=== PATIENT | male | born 1970 | race Hispanic/Latino ===

== ENCOUNTER 2018-06-30 18:16 | Inpatient (IN) | payer SELFPAY ==
[~2018-06-30] VITALS: Ht 170.2 cm; Wt 108.9 kg
[2018-06-30] MEDS ORDERED: SODIUM CHLORIDE 0.9% 1000ML 1,000 ML IV STA (18:28)
[2018-06-30 18:48] LABS: BASOPHILS # (AUTO) 0.1 (0.0-0.1); BASOPHILS % 0.5 % (0.0-1.0); EOSINOPHILS # (AUTO) 0.1 (0.0-0.4); EOSINOPHILS % 0.6 % (0.0-6.0); LYMPHOCYTES # (AUTO) 3.3 (1.0-3.2); LYMPHOCYTES % 19.6 % (18.0-39.1); MEAN CORPUSCULAR HEMOGLOBIN 32.8 pg (28-32); MEAN CORPUSCULAR HGB CONC 34.8 g/dL (31-35); MEAN CORPUSCULAR VOLUME 94.2 fL (81-99); MONOCYTES # (AUTO) 1.3 (0.2-0.8); MONOCYTES % 7.7 % (4.4-11.3); NEUTROPHILS # (AUTO) 11.1 (2.1-6.9); NEUTROPHILS % 66.8 % (38.7-80.0); PLATELET COUNT 208 x10e3/uL (140-360); RED BLOOD COUNT 1.89 x10e6/uL (4.3-5.7); RED CELL DISTRIBUTION WIDTH 12.7 % (11.7-14.4)
[2018-06-30 18:51] LABS: HEMATOCRIT 17.8 % (38.2-49.6); HEMOGLOBIN 6.2 g/dL (14.0-18.0)
[2018-06-30] MEDS ORDERED: MORPHINE SULFATE INJ 4 MG/ML INJ IV ONE (19:00)
[2018-06-30] MEDS ORDERED: ONDANSETRON HCL INJ 2 MG/ML VIAL IV ONE (19:00)
[2018-06-30] MEDS ORDERED: SODIUM CHLORIDE 0.9% 250ML 250 ML IV ONE (19:00)
[2018-06-30 19:01] LABS: BILIRUBIN,URINE NEGATIVE (NEGATIVE); CLARITY,URINE CLEAR (CLEAR); COLOR,URINE YELLOW (YELLOW); INR 1.03; KETONES,URINE NEGATIVE (NEGATIVE); LEUKOCYTE ESTERASE ,URINE NEGATIVE (NEGATIVE); NITRITE,URINE NEGATIVE (NEGATIVE); PARTIAL THROMBOPLASTIN TIME 26.9 seconds (23.8-35.5); PROTEIN,URINE DIPSTICK NEGATIVE (NEGATIVE); PROTHROMBIN TIME 14.4 seconds (11.9-14.5); URINE UROBILINOGEN 0.2 mg/dL (0.2 - 1)
[2018-06-30 19:09] LABS: ALANINE AMINOTRANSFERASE 59 IU/L (0-55); ALBUMIN 3.4 g/dL (3.5-5.0); ALBUMIN/GLOBULIN RATIO 1.4 (0.8-2.0); ALKALINE PHOSPHATASE 41 IU/L (40-150); AMYLASE 61 U/L (25-125); ANION GAP 11.3 mmol/L (8-16); BLOOD UREA NITROGEN 24 mg/dL (7-26); BUN/CREATININE RATIO 28 (6-25); CALCIUM 8.2 mg/dL (8.4-10.2); CARBON DIOXIDE 24 mmol/L (22-29); CHLORIDE 103 mmol/L (98-107); CREATINE KINASE 48 IU/L (30-200); CREATININE, SERUM 0.87 mg/dL (0.72-1.25); EST GLOMERULAR FILTRATION RATE > 60 ML/MIN (60-); GLUCOSE 148 mg/dL (74-118); LIPASE 45 U/L (8-78); POTASSIUM 3.3 mmol/L (3.5-5.1); SODIUM 135 mmol/L (136-145)
[2018-06-30 19:13] LABS: BACTERIA,URINE FEW /HPF; EPITHELIAL CELLS,URINE FEW /LPF; TRANSITIONAL EPI CELLS,URINE FEW
[2018-06-30] MEDS ORDERED: IOPAMIDOL 370 MG/ML 200 ML INFUS..BTL INJ ONE (20:14)
[2018-06-30] MEDS ORDERED: SODIUM CHLORIDE 0.9% 50ML 50 ML ONE ×2 (20:14)
--- NOTE | 2018-06-30 20:24 | Diagnostic Imaging Report ---
ADDENDUM #1 The following addendum is being made to comply with coding criteria, and does not substantially change the findings or recommendations of the original report All CT scans are performed using radiation dose reduction techniques. Technical factors are evaluated and adjusted to ensure appropriate moderation of exposure. Automated dose management technology is applied to adjust the radiation dose to minimize exposure while achieving a diagnostic-quality image. Signed by: Dr. Wilner Gaines M.D. on 07/07/2018 1:29 PM ORIGINAL REPORT EXAM: CT Abdomen and Pelvis WITH contrast INDICATION: Abdominal pain. Vomiting and diarrhea COMPARISON: None. TECHNIQUE: Abdomen and pelvis were scanned utilizing a multidetector helical scanner from the lung base to the pubic symphysis after administration of IV contrast. Coronal and sagittal reformations were obtained. Routine protocol was performed. Scan was performed when during portal venous phase. IV CONTRAST: 100 mL of Isovue-370 ORAL CONTRAST: Water RADIATION DOSE: Total DLP: 773.44 mGy*cm Estimated effective dose: (DLP x 0.015 x size factor) mSv COMPLICATIONS: None FINDINGS: LINES and TUBES: None. LOWER THORAX: Unremarkable HEPATOBILIARY: No focal hepatic lesions. No biliary ductal dilation. GALLBLADDER: No radio-opaque stones or sludge. No wall thickening. SPLEEN: No splenomegaly. PANCREAS: No focal masses or ductal dilatation. ADRENALS: No adrenal nodules KIDNEYS/URETERS: Kidneys enhance symmetrically. No hydronephrosis. No cystic or solid mass lesions. No stones. GI TRACT: No abnormal distention, wall thickening, or evidence of bowel obstruction. Appendix is normal. PELVIC ORGANS/BLADDER: Unremarkable. LYMPH NODES: No lymphadenopathy. VESSELS: Unremarkable. PERITONEUM / RETROPERITONEUM: No free air or fluid. BONES: Unremarkable. SOFT TISSUES: Unremarkable. IMPRESSION: 1. No acute CT abnormality in the abdomen or pelvis. Signed by: Dr. Wilner Gaines M.D. on 06/30/2018 8:20 PM
[2018-06-30] MEDS ORDERED: PROTONIX 200MG/SODIUM CHLORIDE 0.9% 250 ML BAG IV SCH (20:30)
[2018-06-30] MEDS ORDERED: PANTOPRAZOLE 40 MG 10ML VIAL IV ONE (20:35)
--- NOTE | 2018-06-30 20:45 | Diagnostic Imaging Report ---
EXAMINATION: CHEST SINGLE (PORTABLE) INDICATION: Chest pain. Weakness. COMPARISON: None FINDINGS: TUBES and LINES: None. LUNGS: Lungs are well inflated. Lungs are clear. There is no evidence of pneumonia or pulmonary edema. PLEURA: No pleural effusion or pneumothorax. HEART AND MEDIASTINUM: The cardiomediastinal silhouette is unremarkable. BONES AND SOFT TISSUES: No acute osseous lesion. Soft tissues are unremarkable. UPPER ABDOMEN: No free air under the diaphragm. IMPRESSION: No acute thoracic abnormality. Signed by: Dr. Wilner Gaines M.D. on 06/30/2018 8:42 PM
[2018-06-30 20:53] LABS: LYMPHOCYTES % (MANUAL) 20 % (19-48); MICROCYTOSIS MODERATE; MONOCYTES % (MANUAL) 1 % (3.4-9.0); NEUTROPHILS % (MANUAL) 73 % (40-74); NUCLEATED RED BLOOD CELLS 1; RBC MORPHOLOGY COMMENT NORMAL
[2018-06-30 20:54] LABS: PLATELET ESTIMATE ADEQUATE; PLATELET MORPHOLOGY COMMENT NORMAL
--- OUTSIDE RECORDS SUMMARY | 2018-06-30 21:16 | XMS REPORT ---
Author Author [facility] Address Unknown Phone Unavailable Care Team Providers Care Tax Accounting Manager Name Role Phone Haydee MALAVE Unavailable Unavailable Problems This patient has no known problems. Allergies, Adverse Reactions, Alerts This patient has no known allergies or adverse reactions. Medications This patient has no known medications. Results Test Description Test Time Test Comments Text Results Atomic Results Result Comments CHEST SINGLE (PORTABLE) 2018-06-30 20:41:00 [facility] [address] [place] [address] Patient Name: Paul THORNE MR #: [id number] : 1970 Age/Sex: 47/M Req #: [id number] Adm Physician: Ordered by: REBECCA MCKENZIE RESIDENTIAL REAL ESTATE AGENT Report #: [id number] Location: ER Room/Bed: Procedure: [id number] DX/CHEST SINGLE (PORTABLE) Exam Date: 06/30/18 Exam Time: 2017 REPORT STATUS: Signed EXAMINATION: CHEST SINGLE (PORTABLE) INDICATION: Chest pain. Weakness. COMPARISON: None FINDINGS: TUBES and LINES: None. LUNGS: Lungs are well inflated. Lungs are clear. There is no evidence of pneumonia or pulmonary edema. PLEURA: No pleural effusion or pneumothorax. HEART AND MEDIASTINUM: The cardiomediastinal silhouette is unremarkable. BONES AND SOFT TISSUES: No acute osseous lesion. Soft tissues are unremarkable. UPPER ABDOMEN: No free air under the diaphragm. IMPRESSION: No acute thoracic abnormality. Signed by: Dr. Wilner Gaines M.D. on 06/30/2018 8:42 PM Dictated By: WILNER GAINES MD, MD 41 Transcribed By: KEENAN on 06/30/182041 COPY TO: REBECCA MCKENZIE NP CT ABDOMEN/PELVIS W 2018-06-30 20:18:00 [place] [address] Patient Name: Paul THORNE MR #: [id number] : 1970 Age/Sex: 47/M Req #: [id number] Adm Physician: Ordered by: REBECCA MCKENZIE NP Report #: [id number] Location: ER Room/Bed: Procedure: [id number] CT/CT ABDOMEN/PELVIS W Exam Date: 06/30/18 Exam Time: 1999 REPORT STATUS: Signed EXAM: CT Abdomen and Pelvis WITH contrast IN DICATION: Abdominal pain. Vomiting and diarrhea COMPARISON: None. TECHNIQUE: Abdomen and pelvis were scanned utilizing a multidetector helical scanner from the lung base to the pubic symphysis after administration of IV contrast. Coronal and sagittal reformations were obtained. Routine protocol was performed. Scan was performed when during portal venous phase. IV CONTRAST: 100 mL of Isovue-370 ORAL CONTRAST: Water RADIATION DOSE: Total DLP: 773.44 mGy*cm Estimated effective dose: (DLP x 0.015 x size factor) mSv COMPLICATIONS: None FINDINGS: LINES and TUBES: None. LOWER THORAX: Unremarkable HEPATOBILIARY: No focal hepatic lesions. No biliary ductal dilation. GALLBLADDER: No radio-opaque stones or sludge. No wall thickening. SPLEEN: No splenomegaly. PANCREAS: No focal masses or ductal dilatation. ADRENALS: No adrenal nodules KIDNEYS/URETERS: Kidneys enhance s ymmetrically. No hydronephrosis. No cystic or solid mass lesions. No stones. GI TRACT: No abnormal distention, wall thickening, or evidence of bowel obstruction. Appendix is normal. PELVIC ORGANS/BLADDER: Unremarkable. LYMPH NODES: No lymphadenopathy. VESSELS: Unremarkable. PERITONEUM / RETROPERITONEUM: No free air or fluid. BONES: Unremarkable. SOFT TISSUES: Unremarkable. IMPRESSION: 1. No acute CT abnormality in the abdomen or pelvis. Signed by: Dr. Wilner Gaines M.D. on 06/30/2018 8:20 PM Dictated By: WILNER GAINES MD, MD 19 Transcribed By: KEENAN on 06/30/182019 COPY TO: REBECCA MCKENZIE NP
[2018-06-30] MEDS: PANTOPRAZOL 40MG/SOD CHL 0.9% 50 ML IV SCH (21:45)
[2018-06-30] MEDS: SODIUM CHLORIDE 0.9% 1000ML 1,000 ML IV SCH (22:15)
[2018-06-30 23:00] VITALS: BP 114/64
[2018-06-30] MEDS ORDERED: NEXIUM20 MG PO (23:17)
[2018-06-30 23:21] VITALS: BP 114/64
[2018-06-30 23:30] VITALS: BP 111/59
[2018-06-30 23:45] VITALS: BP 105/67
[2018-07-01] VITALS (44 sets, daily range): BP systolic 91–117; BP diastolic 49–80
[2018-07-01] MEDS: PANTOPRAZOL 40MG/SOD CHL 0.9% 50 ML IV SCH ×5 (02:44→21:54)
[2018-07-01] MEDS: SODIUM CHLORIDE 0.9% 1000ML 1,000 ML IV SCH ×3 (04:45→18:05)
[2018-07-01 07:25] LABS: BASOPHILS # (AUTO) 0.1 (0.0-0.1); BASOPHILS % 0.6 % (0.0-1.0); EOSINOPHILS # (AUTO) 0.2 (0.0-0.4)
[2018-07-01 07:33] LABS: ANION GAP 9.6 mmol/L (8-16); BLOOD UREA NITROGEN 15 mg/dL (7-26); BUN/CREATININE RATIO 21 (6-25); CALCIUM 7.7 mg/dL (8.4-10.2); CARBON DIOXIDE 22 mmol/L (22-29); CHLORIDE 105 mmol/L (98-107); CREATININE, SERUM 0.73 mg/dL (0.72-1.25); EST GLOMERULAR FILTRATION RATE > 60 ML/MIN (60-); GLUCOSE 126 mg/dL (74-118); POTASSIUM 3.6 mmol/L (3.5-5.1); SODIUM 133 mmol/L (136-145)
[2018-07-01 07:50] LABS: ANISOCYTOSIS SLIGHT; EOSINOPHILS % (MANUAL) 1 % (0-7); HYPOCHROMASIA MODERATE; LYMPHOCYTES % (MANUAL) 20 % (19-48); METAMYELOCYTES % (MANUAL) 4 % (0-0); MONOCYTES % (MANUAL) 9 % (3.4-9.0); MYELOCYTES % (MANUAL) 2 % (0-0); NEUTROPHILS % (MANUAL) 64 % (40-74); NUCLEATED RED BLOOD CELLS 3; PLATELET ESTIMATE ADEQUATE; PLATELET MORPHOLOGY COMMENT NORMAL; RBC MORPHOLOGY COMMENT NORMAL
[2018-07-01 07:53] LABS: EOSINOPHILS % 1.5 % (0.0-6.0); HEMATOCRIT 22.4 % (38.2-49.6); LYMPHOCYTES # (AUTO) 2.3 (1.0-3.2); LYMPHOCYTES % 16.3 % (18.0-39.1); MEAN CORPUSCULAR HEMOGLOBIN 31.3 pg (28-32); MEAN CORPUSCULAR HGB CONC 34.8 g/dL (31-35); MONOCYTES # (AUTO) 1.3 (0.2-0.8); MONOCYTES % 9.5 % (4.4-11.3); NEUTROPHILS # (AUTO) 9.2 (2.1-6.9); NEUTROPHILS % 66.2 % (38.7-80.0); PLATELET COUNT 174 x10e3/uL (140-360); RED BLOOD COUNT 2.49 x10e6/uL (4.3-5.7); RED CELL DISTRIBUTION WIDTH 14.5 % (11.7-14.4)
[2018-07-01 07:54] LABS: HEMOGLOBIN 7.8 g/dL (14.0-18.0)
--- NOTE | 2018-07-01 10:05 | History and Physical ---
CHIEF COMPLAINT: Diarrhea, watery stools and black stools. HISTORY OF PRESENT ILLNESS: Mr. Robles is a 47-year-old male who presented to the emergency room with black stool and diarrhea going on for 3 days, progressively getting worse. Then he was feeling weak. When he came in, his hemoglobin was 6.2. He received 3 units of blood. He denies any vomiting of blood. He also denies any use of NSAID. He is an every day drinker of 6-pack of 18-ounce beer. He denies any history of peptic ulcer disease. REVIEW OF SYSTEMS GENERAL: Denies any fever or chills. HEAD: Denies any head trauma. EARS: Denies any earache. CVS: Denies any chest pain. RESPIRATORY: Denies any shortness of breath. GI: As above. OTHER: The rest of the review systems are negative except as in HPI. PAST MEDICAL HISTORY: None. PAST SURGICAL HISTORY: None. FAMILY AND SOCIAL HISTORY: Every day smoker for 5 years and drinker every day. PHYSICAL EXAMINATION VITAL SIGNS: Temperature 98, pulse of 90, blood pressure 109/60, respiratory rate 18, O2 sat 99%. HEENT: Head is atraumatic and normocephalic. NECK: Supple. CHEST: Clear to auscultation bilaterally. No wheezing. HEART: S1, S2 audible. ABDOMEN: Soft, nontender nondistended. EXTREMITIES: No clubbing, cyanosis or edema. NEUROLOGIC: Awake and alert. LABS: Hemoglobin was 6.2 and 7.8 now. Chemistries within normal limits. CT abdomen and pelvis was done in the emergency room which showed no acute abnormality in the abdomen or pelvis. ASSESSMENT/PLAN 1. Mr. Robles is a 47-year-old male who presented with gastrointestinal bleed. He will receive 3 packs of RBCs, which have been ordered. GI consult has been called. Patient will have EGD endoscopy today. Will follow GI recommendations. 2. History of alcohol abuse. Will closely follow. May need withdrawal precautions. Job#: [id number]
[2018-07-01 12:24] LABS: HEMATOCRIT 23.4 % (38.2-49.6); HEMOGLOBIN 8.1 g/dL (14.0-18.0)
--- NOTE | 2018-07-01 12:48 | Consultation ---
DATE OF CONSULTATION: July 01, 2018 GASTROENTEROLOGY CONSULTATION REASON FOR CONSULTATION: GI bleed. CHIEF COMPLAINT: Abdominal pain. HPI: The patient is a 47-year-old male with no significant past medical history who presented with epigastric abdominal pain, dizziness and diarrhea that started about 3 days ago. He states that he was feeling really weak and dizzy and also started throwing up. He also noticed having some melena since Saturday. He denies any history of ulcers in the past or chronic NSAID use. However, he does mention drinking a 6-pack of beer a day. He was found to have severe anemia and was found to have a hemoglobin of 6.2, and he was given blood. Hemoglobin is currently stable. He denies any fevers, chills, hematemesis or hematochezia. He denies any shortness of breath. However, he does complain of mild chest discomfort. REVIEW OF SYSTEMS: Denies constipation. Denies hematemesis. Denies dysuria, fevers, chills. PAST MEDICAL HISTORY: Not mentioned. SURGERIES: No history of any previous surgeries. MEDICATIONS: Patient reports taking Nexium on a daily basis for reflux. ALLERGIES: NO KNOWN DRUG ALLERGIES. SOCIAL HISTORY: Occasional smoker. Alcohol use: About a 6-pack per day. FAMILY HISTORY: Reports diabetes, hypertension, heart disease, cancer and cirrhosis. PHYSICAL EXAMINATION VITAL SIGNS: Temperature 98, pulse 90, respiratory rate 18, blood pressure 109/61, pulse ox 99. GENERAL APPEARANCE: Alert and oriented times 3. EYES: Pupils are equal, round and reactive to light. NECK: Nontender. Supple. CARDIO: No murmurs. Regular rate and rhythm. LUNGS: No respiratory distress. Breath sounds normal. Chest is nontender. ABDOMEN: Slightly distended. Nontender. Bowel sounds normal. BACK: No CVA tenderness. SKIN: Warm and dry. No rash. No pallor. EXTREMITIES: Normal range of motion. No calf tenderness. No edema. NEURO: Alert and oriented x3. No motor or sensory deficit. PSYCH: Normal affect. LABS AND IMAGING: Abdominal CT shows no acute CT abnormality in the abdomen or pelvis. White count is 16.61, hemoglobin 6.2, hematocrit 17.8, MCV 94.2, platelet count 208. Coags: INR 1.03, PT 14.4. Sodium 135, potassium 3.3, BUN 15, creatinine 0.73, glucose 126, magnesium 2.0. ALT 59, AST 26. Troponin normal. Albumin 3.4. Lipase 45. ASSESSMENT 1. Melena, rule out gastrointestinal bleed. 2. Severe anemia. 3. Epigastric abdominal pain. 4. Diarrhea. 5. History of alcohol abuse. PLAN: We will go ahead and proceed with EGD today with Dr. Hinojosa. The patient is already currently on pantoprazole drip along with antiemetic. Discussed the procedure with the patient and the family at bedside, and they are aware. The patient is also currently n.p.o. We have also continued to monitor H and H and for any other signs of bleed. Alcohol cessation strongly recommended. Thank you for consulting. We will follow. DICTATED BY: Lisa Daily PA-C Job#: [id number]
[2018-07-01] MEDS ORDERED: MIDAZOLAM HCL 5 MG/ML VIAL ONE (18:55)
[2018-07-01] MEDS ORDERED: FENTANYL CITRATE/PF 100MCG/2 ML INJ ONE (18:55)
[2018-07-01 19:17] LABS: HEMATOCRIT 23.3 % (38.2-49.6); HEMOGLOBIN 8.2 g/dL (14.0-18.0)
[2018-07-01] MEDS ORDERED: PROPOFOL IV EMULSION 10 MG/ML 20 ML VIAL ONE (19:27)
[2018-07-02] VITALS (18 sets, daily range): BP systolic 94–120; BP diastolic 57–77
[2018-07-02 00:03] LABS: HEMATOCRIT 22.6 % (38.2-49.6); HEMOGLOBIN 7.8 g/dL (14.0-18.0)
[2018-07-02] MEDS: PANTOPRAZOL 40MG/SOD CHL 0.9% 50 ML IV SCH ×4 (03:19→17:59)
[2018-07-02] MEDS: SODIUM CHLORIDE 0.9% 1000ML 1,000 ML IV SCH ×3 (03:19→16:32)
[2018-07-02 04:25] LABS: HEMATOCRIT 21.9 % (38.2-49.6); HEMOGLOBIN 7.5 g/dL (14.0-18.0)
[2018-07-02 11:46] LABS: HEMATOCRIT 24.7 % (38.2-49.6); HEMOGLOBIN 8.4 g/dL (14.0-18.0)
[2018-07-02 18:46] LABS: HEMATOCRIT 25.2 % (38.2-49.6); HEMOGLOBIN 8.5 g/dL (14.0-18.0)
[2018-07-03] VITALS (9 sets, daily range): BP systolic 106–139; BP diastolic 59–79
[2018-07-03] MEDS: PANTOPRAZOL 40MG/SOD CHL 0.9% 50 ML IV SCH ×2 (00:07→04:31)
[2018-07-03] MEDS: SODIUM CHLORIDE 0.9% 1000ML 1,000 ML IV SCH (02:00)
[2018-07-03 04:27] LABS: HEMATOCRIT 23.3 % (38.2-49.6); HEMOGLOBIN 7.9 g/dL (14.0-18.0)
--- NOTE | 2018-07-03 10:48 | Discharge Summary ---
FINAL DIAGNOSES 1. Gastrointestinal bleed. 2. Smoker. ADMISSION HISTORY AND HOSPITAL COURSE: Mr. Robles is a 47-year-old male who presented with dark, tarry stool. The patient received 3 units of blood transfusion and underwent EGD by Dr. Hinojosa, who found normal esophagus and duodenal ulcer. He recommended to start the patient on Protonix, which was continued. The patient is doing well. Hemoglobin and hematocrit have been stable. He will be discharged home to follow up with GI. DEVANG CASTILLO MD Job#: [id number]
[2018-07-03] MEDS ORDERED: PEPCID20 MG PO (10:55)
== END 2018-07-03 12:23 | disposition home or self-care (01) | DRG 378 ==
LOC: ER 18:16 → ERHOLD 21:12 → ICU 23:00 → MED/SURG 07-03 05:45
PROVIDERS: ADMIT Internal Medicine; ATTEND Internal Medicine
PROC: 30233N1 Transfusion of Nonautologous Red Blood Cells into Peripheral Vein, Percutaneous Approach (ICD-10-PCS; principal; 2018-06-30)
PROC: 0DB98ZX Excision of Duodenum, Via Natural or Artificial Opening Endoscopic, Diagnostic (ICD-10-PCS; 2018-07-01)
DX: K26.0 Acute duodenal ulcer with hemorrhage (principal); D62 Acute posthemorrhagic anemia; K44.9 Diaphragmatic hernia without obstruction or gangrene; K29.70 Gastritis, unspecified, without bleeding; F10.10 Alcohol abuse, uncomplicated; R19.7 Diarrhea, unspecified; F17.210 Nicotine dependence, cigarettes, uncomplicated; K21.9 Gastro-esophageal reflux disease without esophagitis
CPT/HCPCS: 36415; 43239; 71045; 74177; 80048; 80053; 81001; 82150; 82270; 82550; 82553; 83690; 83735; 84484; 85014; 85018; 85025; 85610; 85730; 86850; 86900; 86920; 88305; 88312; 93005; 96374; 96376; 99284; J2250; J2270; J2405; J7030; J7050; P9016; Q9967